=== PATIENT | male | born 1945 | race Asian ===

== ENCOUNTER → 2017-02-07 | Outpatient (CLI) | payer MEDICARE, OTHER ==
[~2017-02-07] MED LIST: ASPI-556 PO; ATOR20TA86 PO; BENZ-51 PO; FINA5TAB41 PO; SIMV20TA6 PO; TAMS0.4C32 PO; TERA1 PO; TERA5 PO; TRAM50TA4 PO; TRAZ-144 PO; VALS160T2 PO; VALS1TAB52 PO; VITAMINS
== END | disposition home or self-care (01) ==
LOC: MSR 09:50
PROVIDERS: ATTEND Internal Medicine
DX: I70.0 Atherosclerosis of aorta (principal)
CPT/HCPCS: 71020; 94010; 94726; 94727; 94729

== ENCOUNTER → 2017-02-28 | Outpatient (CLI) | payer MEDICARE, OTHER | END | disposition home or self-care (01) | LOC: RADPV 08:21 | PROVIDERS: ATTEND Internal Medicine | DX: R07.9 Chest pain, unspecified (principal) | CPT/HCPCS: 93306 ==

== ENCOUNTER → 2017-03-01 | Outpatient (CLI) | payer MEDICARE, OTHER | END | disposition home or self-care (01) | LOC: RADMN 10:27 | PROVIDERS: ATTEND Neuromusculoskeletal Medicine, Sports Medicine | DX: M23.222 Derangement of posterior horn of medial meniscus due to old tear or injury, left knee (principal); M84.452D Pathological fracture, left femur, subsequent encounter for fracture with routine healing; M25.462 Effusion, left knee; M65.88 Other synovitis and tenosynovitis, other site | CPT/HCPCS: 73721 ==

== ENCOUNTER → 2017-03-14 | Outpatient (CLI) | payer MEDICARE, OTHER | END | disposition home or self-care (01) | LOC: RADPV 10:21 | PROVIDERS: ATTEND Internal Medicine | DX: R07.9 Chest pain, unspecified (principal); I70.0 Atherosclerosis of aorta; J98.4 Other disorders of lung | CPT/HCPCS: 71046 ==

== ENCOUNTER 2017-03-31 21:51 | Emergency (ER) | payer MEDICARE, OTHER ==
[~2017-03-31] VITALS: Ht 165.1 cm; Wt 76.0 kg
[~2017-03-31 21:51] MED LIST changes: -ASPI-556 PO; -ATOR20TA86 PO; -BENZ-51 PO; -FINA5TAB41 PO; -TAMS0.4C32 PO; -TERA5 PO; -TRAM50TA4 PO; -TRAZ-144 PO; -VALS1TAB52 PO
[2017-03-31] MEDS ORDERED: ATOR20TA86 PO (22:00)
[2017-03-31] MEDS ORDERED: TAMS0.4C32 PO (22:00)
[2017-03-31] MEDS ORDERED: TRAM50TA4 PO (22:00)
[2017-03-31] MEDS ORDERED: VALS1TAB52 PO (22:00)
[2017-03-31] MEDS ORDERED: ASPI-556 PO (22:00)
[2017-03-31] MEDS ORDERED: TRAZ-144 PO (22:00)
[2017-03-31] MEDS ORDERED: BENZ-51 PO (22:00)
[2017-03-31] MEDS ORDERED: TERA5 PO (22:00)
[2017-03-31] MEDS ORDERED: FINA5TAB41 PO (22:00)
[2017-03-31 22:41] VITALS: BP 145/83
== END 2017-03-31 22:43 | disposition home or self-care (01) ==
LOC: EMS 21:53
DX: J40 Bronchitis, not specified as acute or chronic (principal); R04.0 Epistaxis; I25.10 Atherosclerotic heart disease of native coronary artery without angina pectoris; E78.00 Pure hypercholesterolemia, unspecified; I10 Essential (primary) hypertension; I20.9 Angina pectoris, unspecified; Z79.82 Long term (current) use of aspirin
CPT/HCPCS: 99283

== ENCOUNTER 2017-05-08 15:23 | Emergency (ER) | payer MEDICARE, OTHER ==
[~2017-05-08] VITALS: Ht 165.1 cm; Wt 72.5 kg
[~2017-05-08 15:23] MED LIST changes: +ASPI-556 PO; +ATOR20TA86 PO; +BENZ-51 PO; +FINA5TAB41 PO; -SIMV20TA6 PO; +TAMS0.4C32 PO; -TERA1 PO; +TERA5 PO; +TRAM50TA4 PO; +TRAZ-144 PO; -VALS160T2 PO; +VALS1TAB52 PO; -VITAMINS
[2017-05-08 16:17] VITALS: BP 130/86
[2017-05-08] MEDS ORDERED: IBUPROFEN 800 MG TABLET PO ONE (16:30)
== END 2017-05-08 16:57 | disposition home or self-care (01) ==
LOC: EMS 15:24
DX: H69.81 Other specified disorders of Eustachian tube, right ear (principal); H92.01 Otalgia, right ear; R51 Headache; E78.00 Pure hypercholesterolemia, unspecified; I10 Essential (primary) hypertension; I25.10 Atherosclerotic heart disease of native coronary artery without angina pectoris; N40.0 Benign prostatic hyperplasia without lower urinary tract symptoms; Z79.82 Long term (current) use of aspirin; Z90.49 Acquired absence of other specified parts of digestive tract
CPT/HCPCS: 99283

== ENCOUNTER 2018-05-11 11:25 | Emergency (ER) | payer MEDICARE, OTHER ==
[~2018-05-11] VITALS: Ht 167.6 cm; Wt 77.3 kg
[~2018-05-11 11:25] MED LIST changes: -TERA5 PO; +TERA5CAP12 PO; -TRAZ-144 PO; +TRAZ-219 PO
[2018-05-11] MEDS ORDERED: PROMETHAZINE HCL/CODEINE 6.25-10MG/5ML SYRUP UDCUP PO ONE (12:30)
[2018-05-11 14:32] VITALS: BP 149/95
== END 2018-05-11 14:33 | disposition home or self-care (01) ==
LOC: EMS 11:26
DX: J21.9 Acute bronchiolitis, unspecified (principal); I25.10 Atherosclerotic heart disease of native coronary artery without angina pectoris; I10 Essential (primary) hypertension; E78.00 Pure hypercholesterolemia, unspecified; Z90.49 Acquired absence of other specified parts of digestive tract; Z79.82 Long term (current) use of aspirin

== ENCOUNTER → 2018-07-10 | Outpatient (CLI) | payer MEDICARE, OTHER | END | disposition home or self-care (01) | LOC: RADMN 09:18 | PROVIDERS: ATTEND Neuromusculoskeletal Medicine, Sports Medicine | DX: S32.029A Unspecified fracture of second lumbar vertebra, initial encounter for closed fracture (principal); M51.37 Other intervertebral disc degeneration, lumbosacral region; M48.061 Spinal stenosis, lumbar region without neurogenic claudication; X58.XXXA Exposure to other specified factors, initial encounter; Y93.89 Activity, other specified; Y92.89 Other specified places as the place of occurrence of the external cause; Y99.8 Other external cause status | CPT/HCPCS: 72148 ==

== ENCOUNTER 2020-02-23 13:37 | Emergency (ER) | payer MEDICARE, OTHER ==
[~2020-02-23] VITALS: Ht 165.1 cm; Wt 74.1 kg
[~2020-02-23 13:37] MED LIST changes: +FINA-27 PO; -FINA5TAB41 PO; +TAMS-13 PO; -TAMS0.4C32 PO; -TRAZ-219 PO; +TRAZ-252 PO
[2020-02-23 13:44] VITALS: BP 140/89
[2020-02-23 15:00] LABS: COVID AG,FIA SOURCE NASOPHARYNGEAL
== END 2020-02-23 15:51 | disposition home or self-care (01) ==
LOC: EMS 13:41
DX: J06.9 Acute upper respiratory infection, unspecified (principal); I25.10 Atherosclerotic heart disease of native coronary artery without angina pectoris; E78.00 Pure hypercholesterolemia, unspecified; I10 Essential (primary) hypertension; Z20.828 Contact with and (suspected) exposure to other viral communicable diseases; Z90.89 Acquired absence of other organs; Z79.82 Long term (current) use of aspirin
CPT/HCPCS: 87426

== ENCOUNTER 2020-04-13 13:27 | Emergency (ER) | payer MEDICARE, OTHER ==
[~2020-04-13] VITALS: Ht 165.1 cm; Wt 71.4 kg
[~2020-04-13 13:27] MED LIST changes: -BENZ-51 PO
[2020-04-13 13:59] VITALS: BP 132/77
[2020-04-13 15:44] LABS: COVID AG,FIA SOURCE NASOPHARYNGEAL
== END 2020-04-13 15:00 | disposition home or self-care (01) ==
LOC: EMS 13:32
DX: I10 Essential (primary) hypertension (principal); E78.5 Hyperlipidemia, unspecified; Z20.822 Contact with and (suspected) exposure to COVID-19
CPT/HCPCS: 87426; 99283; C9803; U0003